=== PATIENT | male | born 1995 | race Caucasian/White ===

== ENCOUNTER 2017-05-22 22:32 | Emergency (ER) | payer OTHER ==
[2017-05-22 22:40] VITALS: RESP 16; TEMP 97.9
--- NOTE | 2017-05-23 00:26 | EDPHY ---
H & P Smoking Status: Never smoked Time Seen by Provider: 05/22/17 23:14 HPI/ROS: CHIEF COMPLAINT: Back pain HISTORY OF PRESENT ILLNESS: 21-year-old male presents to the emergency department complaining of severe mid to lower back pain. The patient states this evening approximately 2 hours prior to arrival he jumped down off something that was approximately 1 foot off the ground and when he landed on his feet he felt immediate pain in his mid to lower back. He denies landing on his buttock. He complains of isolated pain in his mid lower back. He has no radicular symptoms in his lower legs. Denies feelings of weakness in his lower legs. Denies chest pain or difficulty breathing. His pain is especially worse if he moves. REVIEW OF SYSTEMS: Constitutional: No fever, no chills. Eyes: No double or blurry vision. ENT: No sore throat. Respiratory: No cough, no shortness of breath. Cardiac: No chest pain. Gastrointestinal: No abdominal pain, vomiting or diarrhea. Genitourinary: No dysuria. Musculoskeletal: Back pain as above. No neck pain. Skin: No rashes. Neurological: No headache. (Suzanne Ford M) Past Medical/Surgical History: Negative (Suzanne Ford M) Social History: Single (Suzanne Ford) Physical Exam: General Appearance: Alert, no distress. Eyes: Pupils equal and round. Extraocular motions are all intact. ENT: Mouth: Mucous membranes moist. Respiratory: No wheezing, rhonchi, or rales, lungs are clear to auscultation. Cardiovascular: Regular rate and rhythm. Gastrointestinal: Abdomen is soft and nontender, no masses, no rebound or guarding, bowel sounds normal. Neurological: Alert and oriented x 3, cranial nerves II through XII grossly intact Skin: Warm and dry, no rashes. Musculoskeletal: Reproducible pain with palpation along the lower thoracic spine and upper lumbar spine. No palpable crepitus or other bony abnormality. Nontender to palpate along cervical spine. Neck is supple. Extremities: Full range of motion and no peripheral edema. Straight leg raise is negative bilaterally. He is able to flex both knees. Normal gait. Psychiatric: Patient is oriented X 3, there is no agitation. (Suzanne Ford M) Constitutional: Initial Vital Signs Temperature (C) 36.6 C 05/22/17 22:35 Heart Rate 79 05/22/17 22:35 Respiratory Rate 16 05/22/17 22:35 Blood Pressure 116/84 H 05/22/17 22:35 O2 Sat (%) 95 05/22/17 22:35 O2 Delivery Mode Room Air Allergies/Adverse Reactions: No Known Allergies Allergy (Unverified 05/22/17 22:40) Home Medications: Medication Instructions Recorded Cyclobenzaprine [Flexeril] 10 mg PO TIDPRN PRN #12 tab 05/23/17 Medical Decision Making - Diagnostics Imaging: I viewed and interpreted images myself - Diagnostics Imaging Results: X-rays of thoracic and lumbar spine reveal no fractures. This is reviewed by myself the PAC system as well as with Dr. Fitzgerald. (Suzanne Ford) ED Course/Re-evaluation: 21-year-old male presents to the emergency department with lower back pain. X-rays of the thoracic and lumbar spine were reviewed by myself as well as with Dr. Pia Fitzgerald and revealed no acute fractures. Patient was encouraged to use ibuprofen. He is given prescription for Flexeril , muscle relaxer. (Suzanne Ford) Differential Diagnosis: Back pain including but not limited to muscular pain, herniated disc, spine fracture, intra-abdominal causes and urinary tract infection. (Suzanne Ford) Other Provider: PHYSICIAN DOCUMENTATION: The patient was evaluated and managed by the Physician Dock Operator. My co- signature indicates that I have reviewed this chart and I agree with the findings and plan of care as documented. I am the secondary supervising physician. (Pia Fitzgerald) - Data Points Medications Given: Discontinued Medications Cyclobenzaprine HCl (Flexeril 10 Mg Prepack#3) [facility] Stop: 05/23/17 01:14 Last Admin: 05/23/17 01:32 Dose: 1 btl Departure - Departure Disposition: Home, Routine, Self-Care Clinical Impression: Low back strain Qualifiers: Encounter type: initial encounter Qualified Code(s): S39.012A - Strain of muscle, fascia and tendon of lower back, initial encounter Condition: Good Instructions: Cyclobenzaprine (By mouth), Low Back Strain (ED) Additional Instructions: Ibuprofen 600 mg every 8 hours as needed for pain. Flexeril as needed for muscular spasm to help you sleep. Return to the emergency department if you develop radicular symptoms in your legs, feelings of weakness in your legs, numbness or tingling in your toes, bowel bladder incontinence, or if you feel worse in any way. Referrals: Abhinav Manley MD [[facility] [place] Primary Care Provider] - 2-3 days, call for appt. ( Primary care provider agricultural education teacher) Prescriptions: Cyclobenzaprine [Flexeril] 10 mg PO TIDPRN PRN #12 tab PRN Reason: P.r.n. spasm
[2017-05-23] MEDS ORDERED: CYCLOBENZAPRINE 10MG PREPACK#3 BTL TAKEHOME ONE (01:13)
[2017-05-23 01:39] VITALS: BP 110/65; PULSE 58; O2SAT 94
== END 2017-05-23 01:37 | disposition home or self-care (01) ==
DX: S39.012A Strain of muscle, fascia and tendon of lower back, initial encounter (principal); W17.89XA Other fall from one level to another, initial encounter; Y99.8 Other external cause status; Y93.39 Activity, other involving climbing, rappelling and jumping off